=== PATIENT | female | born 1960 | race Caucasian/White ===

== ENCOUNTER 2018-01-09 12:25 | Inpatient (IN) | payer OTHER ==
[~2018-01-09] VITALS: Ht 167.6 cm; Wt 86.2 kg
[2018-01-09 13:53] LABS: BASOPHILS # (AUTO) 0.03 x10^3/uL (0-0.1); BASOPHILS % (AUTO) 1 % (0-1); EOSINOPHILS # (AUTO) 0.16 x10^3/uL (0-0.4); EOSINOPHILS % (AUTO) 3 % (1-7); LYMPHOCYTES # (AUTO) 1.36 x10^3/uL (1-3.4); LYMPHOCYTES % (AUTO) 24 % (22-44); MD NO; MEAN CORPUSCULAR HEMOGLOBIN 32.1 pg (27.0-34.8); MEAN CORPUSCULAR VOLUME 91.6 fL (80-100); MEAN PLATELET VOLUME 7.1 fL (7.4-10.4); MONOCYTES # (AUTO) 0.35 x10^3/uL (0.2-0.8); MONOCYTES % (AUTO) 6 % (2-9); NEUTROPHILS # (AUTO) 3.72 x10^3/uL (1.8-6.8); NEUTROPHILS % (AUTO) 66 % (42-75); PLATELET COUNT 163 x10^3/uL (130-400); RED BLOOD COUNT 4.66 x10^6/uL (3.82-5.3); RED CELL DISTRIBUTION WIDTH 12.8 % (9.6-15.2)
[2018-01-09 14:00] LABS: CHLORIDE 112 mmol/L (98-107)
[2018-01-09 14:04] LABS: ALBUMIN 3.7 g/dL (3.4-5.0); ANION GAP 7 mmol/L (5-15); CALCIUM 8.4 mg/dL (8.5-10.1)
[2018-01-09 14:12] LABS: ALANINE AMINOTRANSFERASE 36 U/L (12-78); ALKALINE PHOSPHATASE 82 U/L (45-117); BILIRUBIN,TOTAL 0.6 mg/dL (0.2-1.0); CREATININE 0.85 mg/dL (0.55-1.02); FREE T4 (FREE THYROXINE) 1.11 ng/dL (0.76-1.46); TOTAL PROTEIN 6.8 g/dL (6.4-8.2); TROPONIN I < 0.015 ng/mL (0.000-0.045)
[2018-01-09] MEDS ORDERED: ENOXAPARIN 40 MG/0.4 ML SQ SCH (16:00)
[2018-01-09 16:28] LABS: HCT (SEDRATE) 42.7 % (34.6-47.8)
[2018-01-09] MEDS ORDERED: GADOBUTROL 7.5 MMOL/7.5 ML PFS ONE (17:12)
[2018-01-09] MEDS ORDERED: ENOXAPARIN 40 MG/0.4 ML ONE (17:28)
[2018-01-09] MEDS: ENOXAPARIN 40 MG/0.4 ML SQ SCH (17:32)
[2018-01-09 19:45] VITALS: BP 121/85
[2018-01-09] MEDS ORDERED: ACETAMINOPHEN 325 MG TABLET ONE (22:42)
[2018-01-09] MEDS: ACETAMINOPHEN 325 MG TABLET PO PRN (22:52)
[2018-01-09 23:02] LABS: MICROSCOPIC NOT IND
[2018-01-09 23:13] LABS: CULTURE INDICATED? NO
[2018-01-10] MEDS ORDERED: VENTOLIN 90 MCG INH PRN (01:00)
[2018-01-10] MEDS ORDERED: FURO-93 PO (01:21)
[2018-01-10] MEDS ORDERED: ALBU18HF INH (01:21)
[2018-01-10] MEDS ORDERED: MOME13HF INH (01:21)
[2018-01-10] MEDS ORDERED: HYDR10SY14 PO (01:21)
[2018-01-10 02:00] VITALS: BP 121/85
[2018-01-10 02:21] VITALS: BP 116/72
[2018-01-10 06:17] LABS: BASOPHILS # (AUTO) 0.02 x10^3/uL (0-0.1); BASOPHILS % (AUTO) 1 % (0-1); EOSINOPHILS # (AUTO) 0.21 x10^3/uL (0-0.4); EOSINOPHILS % (AUTO) 5 % (1-7); LYMPHOCYTES % (AUTO) 40 % (22-44); MD NO; MEAN CORPUSCULAR HGB CONC 35.2 g/dL (32.4-35.8); MEAN PLATELET VOLUME 6.9 fL (7.4-10.4); MONOCYTES # (AUTO) 0.33 x10^3/uL (0.2-0.8); MONOCYTES % (AUTO) 8 % (2-9); NEUTROPHILS # (AUTO) 2.04 x10^3/uL (1.8-6.8); NEUTROPHILS % (AUTO) 47 % (42-75); PLATELET COUNT 151 x10^3/uL (130-400); RED CELL DISTRIBUTION WIDTH 12.5 % (9.6-15.2)
[2018-01-10 06:26] LABS: CHLORIDE 112 mmol/L (98-107)
[2018-01-10 06:45] LABS: ALANINE AMINOTRANSFERASE 33 U/L (12-78); ALBUMIN 3.1 g/dL (3.4-5.0); ALKALINE PHOSPHATASE 69 U/L (45-117); ANION GAP 7 mmol/L (5-15); BILIRUBIN,TOTAL 0.6 mg/dL (0.2-1.0); CALCIUM 8.6 mg/dL (8.5-10.1); CHOL/HDL RATIO 2.6; CHOLESTEROL, TOTAL 192 mg/dL (140-239); HDL CHOL % 39 % (28-40); HDL CHOLESTEROL (DIRECT) 75 mg/dL (40-60); LDL CHOLESTEROL,CALCULATED 102 mg/dL (54-169); LDL/HDL RATIO 1.4 (0.5-3.0); TRIGLYCERIDES 77 mg/dL (50-200); VLDL CHOLESTEROL 15 mg/dL (0-25)
[2018-01-10 08:00] VITALS: BP 106/67
[2018-01-10] MEDS: ACETAMINOPHEN 325 MG TABLET PO PRN (08:27)
[2018-01-10] MEDS ORDERED: DIPHENHYDRAMINE 50 MG/ML, 1ML IVPush ONE (13:00)
[2018-01-10] MEDS ORDERED: PROCHLORPERAZINE 5 MG/ML, 2ML IVPush ONE (13:00)
[2018-01-10] MEDS ORDERED: KETOROLAC 30 MG/1 ML IVPush ONE (13:00)
[2018-01-10] MEDS ORDERED: SODIUM CHLORIDE 0.9% 1,000ML IVBOLUS ONE (13:00)
[2018-01-10 13:57] VITALS: BP 102/68
[2018-01-10] MEDS: ENOXAPARIN 40 MG/0.4 ML SQ SCH (17:23)
[2018-01-10 19:37] VITALS: BP 94/64
[2018-01-11 02:18] VITALS: BP 99/66
[2018-01-11 06:48] VITALS: BP 96/63
[2018-01-11 12:16] VITALS: BP 117/79
== END 2018-01-11 15:11 | disposition home or self-care (01) | DRG 103 ==
LOC: ED 15:06 → EDIP 15:07 → INTOOBSV 15:07 → ED 16:09 → OBSVTOIN 17:46 → 4WST 19:51 → DCLOUNGE 01-11 14:40
PROVIDERS: ADMIT Internal Medicine; ATTEND Internal Medicine
DX: G43.909 Migraine, unspecified, not intractable, without status migrainosus (principal); H53.2 Diplopia; H91.93 Unspecified hearing loss, bilateral; H93.19 Tinnitus, unspecified ear; Z88.8 Allergy status to other drugs, medicaments and biological substances; M32.9 Systemic lupus erythematosus, unspecified
CPT/HCPCS: 36415; 70450; 70553; 71045; 80053; 80061; 81003; 83735; 84100; 84439; 84443; 84484; 85025; 85651; 93005; 96372; 99285; A9585; G0378; J1650; J1885; 92523-GN; J0780; J1200; J7030

== ENCOUNTER → 2018-07-18 | Outpatient (CLI) | payer OTHER ==
[~2018-07-18] MED LIST: ALBU18HF INH; FURO-93 PO; HYDR10SY14 PO; MOME13HF INH
== END | disposition home or self-care (01) ==
LOC: CFH 10:37
PROVIDERS: ATTEND Nurse Practitioner Women's Health
DX: R10.2 Pelvic and perineal pain (principal); Z90.710 Acquired absence of both cervix and uterus; Z90.721 Acquired absence of ovaries, unilateral
CPT/HCPCS: 76830